=== PATIENT | female | born 1995 | race Caucasian/White ===

== ENCOUNTER 2017-12-19 05:30 | Inpatient (IN) | payer OTHER ==
[2017-12-19] MEDS ORDERED: Docusate 100 MG CAP PO PRN (07:28)
[2017-12-19] MEDS ORDERED: Acetaminophen 500 MG TAB PO PRN (07:28)
[2017-12-19] MEDS ORDERED: Promethazine HCl 25 MG/ML VIAL IM PRN ×2 (07:28→15:37)
[2017-12-19] MEDS ORDERED: Lidocaine 1% (PF) 30 ML VIAL SC PRN (07:28)
[2017-12-19] MEDS ORDERED: Ondansetron HCl/PF 4 MG/2 ML Vial IVP PRN ×2 (07:28→15:37)
[2017-12-19] MEDS ORDERED: Ibuprofen 800 MG TAB PO PRN (07:28)
[2017-12-19 07:55] VITALS: BMI 44.6
--- NOTE | 2017-12-19 07:58 | PDOC.LDHP ---
Labor and Delivery H&P Chief complaint: other (TOLAC induction of labor for IUGR with AROM) HPI: Ginger Castorena is a 21 year old @ 39.0 weeks based on LMP c/w 13.0 wk US. She present for TOLAC induction of labor for IUGR with AROM. She is doing well, inconsistently feeling contractions, denies LOF, vaginal bleeding, vaginal discharge. +FM. This has been complicated by IUGR nAC<10% down from 72% at 31.6 weeks. She also had elevated temperatures 2/2 white coat syndrome. She has a history of gestation HTN in previous which resulted in a LTCS for nonreassuring heart tones. Current gestational age (weeks): 39 (39.0) Due date: 12/26/17 Dating criteria: last menstrual period, first trimester ultrasound Grav: 2 Para: 1 (1001) OB History Details: Had gestation HTN in previous , which resulted in LTCS for non reassuring heart tones Current complications: IUGR Abnormal US findings: Yes (IUGR, pyelectasis, hydronephrosis of L kidney) Past Medical History: Asthma-controlled on no medication Current medications: none Previous surgical history: low tranverse CS Social history: none - Physical Exam Vital signs reviewed and normal: yes General: NAD, resting Heart: RRR Lungs: CTAB Abdomen: NTTP Extremeties: no edema FHT: category 1 [place] contractions every: 10 min - Vaginal Exam cm dilated: 4 Effacement: 75% Station: -2 - OB Labs Blood type: O RH: positive Antibody Screen: negative HIV: negative RPR: negative HEPSAg: negative 1 hour GCT: negative GBS: negative Rubella: immune - Assessment L&D Assessment: medically indicated induction (for IUGR) - Plan Plan: admit to L&D (Bedside US performed. Patient is vertex, placenta anterior. Note: Patient does have history of asthma. Avoid hemabate if possible.), informed consent obtained, anesthesia consult for pain management <Javy Scott - Last Filed: 12/19/17 07:53> <Irais Chowdary - Last Filed: 12/19/17 09:18> Allergies/Adverse Reactions: Allergies Allergy/AdvReac Type Severity Reaction Status Date / Time No Known Allergies Allergy Verified 12/19/17 07:47 Attending Addendum - Attending Addendum Date/Time: 12/19/17 0904 I personally evaluated the patient and discussed the management with Dr. Scott and Jarrod I agree with the History, Examination, Assessment and Plan documented above with any addition or exceptions noted below. 21 yo female at 39.0 wks by LMP/13.0 wk sono here for IOL 2/2 Asymmetric growth restriction HD#1 1. sIUP: IOB labs reviewed. Anatomy reviewed. Flu and Tdap given during . 1 hour gtt = 86. 3T negative. GBS negative. 2. Asymmetric growth restriction: AC <1%tile per [place] at 37.1 wks. Has been following with MFM. UA dopplers = 2.60 (66%). Overall EFW = 2707g (21%) at 37.1 wks. Recommend delivery at 39 wks. 3. left pyelectasis: Will need follow up after . 4. hx of LTCS 2/2 NRFHT: Would like TOLAC but understands risk and possible limitations related to fetus. Adequate maternal pelvis on exam. Favorable cerix at 4/50/-2 and bulging bag. Will induce with AROM. Cat 1 tracing with occasional contractions. Patient would like epidural for pain control. 5. BMI 45: wt gain this 7 lbs. A1c and TSH WNL. 6. White coat HTN: BP stable with home monitoring. BP WNL today. Does have hx of gHTN but not complications this . Susan <Irais Chowdary - Last Filed: 12/19/17 09:18>
[2017-12-19] MEDS: Lactated Ringer's 1,000 ML IV SCH ×3 (08:18→17:46)
[2017-12-19 08:47] LABS: Hemoglobin 11.4 g/dL (12.0-16.0); Mean Corpuscular Hemoglobin 26.2 pg (25.0-35.0); Mean Platelet Volume 8.9 fL (7.4-10.4); Platelet Count 233 thou/uL (130-400); RBC Distribution Width 14.6 % (11.5-14.5); Red Blood Cell (RBC) Count 4.34 mill/uL (4.00-5.20); White Blood Cell (WBC) Count 10.7 thou/uL (4.8-10.8)
[2017-12-19 09:11] LABS: HBSAg Index 0.18 S/CO (0-0.99); Hep B Surf Ag Non-Reactive S/CO (NonReactive); Syphilis Antibody Nonreactive (Nonreactive); Syphilis Antibody Index 0.02 S/CO (<1.00 Non-Reactive)
--- NOTE | 2017-12-19 09:21 | PDOC.LDPN ---
Labor & Delivery Progress Note - Subjective Subjective: comfortable - Objective Vital signs reviewed and normal: yes General: NAD, resting Uterine fundus: palpable contractions Dilation: 4 Effacement: 50% Station: -2 FHT: category 1 [place] contractions every: occasional AROM: clear fluid - Assessment (1) History of delivery Code(s): Z98.891 - HISTORY OF UTERINE SCAR FROM PREVIOUS SURGERY Current Visit : Yes Status: Acute Comment: Would like TOLAC. R/B/A discussed. Questions answered. Consent signed. Favorable cervix. Linares score of 8. Occasional contractions. FHT cat 1. Will AROM for IOL. (2) Encounter for induction of labor Code(s): Z34.90 - ENCNTR FOR SUPRVSN OF NORMAL , UNSP, UNSP TRIMESTER Current Visit: Yes Status: Acute Comment: 21 yo female at 39.0 wks by LMP/13.0 wk sono here for IOL 2/2 asymmetric growth restriction. Fetus continues to have progressive AC growth restriction. Last Ac <1%tile per [place] at 37.1 wks. Per MFM recommend delivery at 39 wks. Has history of LTCS will induce with AROM. [employer] reviewed plan and agrees. Cephalic by sono. Cat 1 tracing. (3) growth restriction Current Visit: Yes Status: Acute Comment: Asymmetric. AC <1%tile per [place] at 37.1 wks. MFM following. Umbilical artery dopplers WNL. Recommend delivery at 39 wks. (4) Pyelectasis of fetus on ultrasound Code(s): O35.8XX0 - MATERNAL CARE FOR OTH ABNORMALITY AND DAMAGE, UNSP Current Visit: Yes Status: Acute Comment: Will need renal sono after delivery. CHELI WNL. (5) BMI 40.0-44.9, adult Code(s): Z68.41 - BODY MASS INDEX (BMI) 40.0-44.9, ADULT Current Visit: Yes Status: Acute Comment: TSH = 1.82. A1c = 5.1%. 1 hour gtt = 86. 7lb wt gain this . Plan: continue plan of care -: Continuous monitoring. May have clears. Admission labs reviewed. AROM'ed with clear fluid. Will repeat exam prn vs 3 to 4 hours to consider IUPC and pitocin. Susan
[2017-12-19 11:39] LABS: Albumin 3.8 g/dL (3.5-5.0); Calcium 9.4 mg/dL (7.8-10.44); Chloride 107 mmol/L (98-107); Glucose 84 mg/dL (70-105); Potassium 4.2 mmol/L (3.5-5.1); Sodium 136 mmol/L (136-145)
--- NOTE | 2017-12-19 11:47 | PDOC.LDPN ---
Labor & Delivery Progress Note - Subjective Subjective: comfortable, painful contractions - Objective Vital signs reviewed and normal: yes Abnormal vital signs: BP was 140/80 about 45 min ago General: NAD, resting, breathing through contractions Uterine fundus: non tender SVE: Tyler Dilation: 5 Effacement: 75% Station: -2 FHT: category 1 [place] contractions every: 6-7 min Procedures: IUPC placed IUPC placed: yes - Assessment (1) Encounter for induction of labor Code(s): Z34.90 - ENCNTR FOR SUPRVSN OF NORMAL , UNSP, UNSP TRIMESTER Current Visit: Yes Status: Acute Comment: 21 yo female at 39.0 wks by LMP/13.0 wk sono here for IOL 2/2 asymmetric growth restriction. Fetus continues to have progressive AC growth restriction. Last Ac <1%tile per [place] at 37.1 wks. Per MFM recommend delivery at 39 wks. Has history of LTCS will induce with AROM. TOP STOP ATTACHER reviewed plan and agrees. Cephalic by sono. Cat 1 tracing. IUPC placed, will reevaluate in 2 hours and determine whether or not to start pitocin. (2) growth restriction Current Visit: Yes Status: Acute Comment: Asymmetric. AC <1%tile per [place] at 37.1 wks. MFM following. Umbilical artery dopplers WNL. Recommend delivery at 39 wks. (3) BMI 40.0-44.9, adult Code(s): Z68.41 - BODY MASS INDEX (BMI) 40.0-44.9, ADULT Current Visit: Yes Status: Acute Comment: TSH = 1.82. A1c = 5.1%. 1 hour gtt = 86. 7lb wt gain this . (4) History of delivery Code(s): Z98.891 - HISTORY OF UTERINE SCAR FROM PREVIOUS SURGERY Current Visit : Yes Status: Acute Comment: Would like TOLAC. R/B/A discussed. Questions answered. Consent signed. Favorable cervix. Linares score of 8. Occasional contractions. FHT cat 1. AROM at 0900. IUPC placed at 1140. Ctx every 6-7 min. (5) Pyelectasis of fetus on ultrasound Code(s): O35.8XX0 - MATERNAL CARE FOR OTH ABNORMALITY AND DAMAGE, UNSP Current Visit: Yes Status: Acute Comment: Will need renal sono after delivery. CHELI WNL. Plan: continue plan of care -: AROM-clear fluid at 0900, IUPC placed at 1140, SVE: /-2 at 1140 <Javy Scott - Last Filed: 12/19/17 11:45> - Assessment (1) History of delivery Code(s): Z98.891 - HISTORY OF UTERINE SCAR FROM PREVIOUS SURGERY Current Visit : Yes Status: Acute Comment: Would like TOLAC. R/B/A discussed. Questions answered. Consent signed. Favorable cervix. Linares score of 8. Occasional contractions. FHT cat 1. AROM at 0900. IUPC placed at 1140. FSE placed at 1345. (2) Encounter for induction of labor Code(s): Z34.90 - ENCNTR FOR SUPRVSN OF NORMAL , UNSP, UNSP TRIMESTER Current Visit: Yes Status: Acute Comment: 21 yo female at 39.0 wks by LMP/13.0 wk sono here for IOL 2/2 asymmetric growth restriction. Fetus continues to have progressive AC growth restriction. Last Ac <1%tile per [place] at 37.1 wks. Per MFM recommend delivery at 39 wks. Has history of LTCS will induce with AROM. TOP STOP ATTACHER reviewed plan and agrees. Cephalic by sono. Post Day 1: Continue routine post- care. Pain management. Monitoring for bleeding, fever, pain. Mom is . (3) growth restriction Current Visit: Yes Status: Acute Comment: Asymmetric. AC <1%tile per [place] at 37.1 wks. MFM following. Umbilical artery dopplers WNL. (4) Pyelectasis of fetus on ultrasound Code(s): O35.8XX0 - MATERNAL CARE FOR OTH ABNORMALITY AND DAMAGE, UNSP Current Visit: Yes Status: Acute Comment: Will need renal sono after delivery. CHELI WNL. (5) BMI 40.0-44.9, adult Code(s): Z68.41 - BODY MASS INDEX (BMI) 40.0-44.9, ADULT Current Visit: Yes Status: Acute Comment: TSH = 1.82. A1c = 5.1%. 1 hour gtt = 86. 7lb wt gain this . <Irais Chowdary - Last Filed: 12/20/17 11:44> Attending Addendum - Attending Addendum Date/Time: 12/20/17 6053 I personally evaluated the patient and discussed the management with Dr. Scott I agree with the History, Examination, Assessment and Plan documented above with any addition or exceptions noted below. Continue current care. Changing spontaneously. IUPC in place due to poor external monitoring. Repeat exam in 2 hours. BP stable. Labs WNL. ABrayMD <Irais Chowdary - Last Filed: 12/20/17 11:44>
[2017-12-19 11:58] LABS: Alkaline Phosphatase 175 U/L (40-150); Anion Gap 16 mmol/L (10-20); BUN (Urea Nitrogen) 7 mg/dL (8.4-21.0); Bilirubin, Total 0.3 mg/dL (0.2-1.2); Calc. Creatinine Clearance 286 mL/min (70-130); Carbon Dioxide 17 mmol/L (22-29); Estimated GFR-MDRD Greater than 90; Globulin 2.9 g/dL (2.4-3.5); Protein, Total 6.7 g/dL (6.0-8.3)
[2017-12-19 11:59] LABS: AST (SGOT) 19 U/L (5-30)
[2017-12-19 12:51] LABS: ALT (SGPT) 10 U/L (8-55)
[2017-12-19 13:52] LABS: Creatinine, Urine 31.77 mg/dL (47-110)
--- NOTE | 2017-12-19 13:59 | PDOC.LDPN ---
Labor & Delivery Progress Note - Objective SVE: ALEKSANDR Simons Dilation: 6 Effacement: 100% Station: -1 FHT: category 1 [place] contractions every: 6-7 Procedures: scalp electrode placed FSE placed: yes - Assessment (1) Encounter for induction of labor Code(s): Z34.90 - ENCNTR FOR SUPRVSN OF NORMAL , UNSP, UNSP TRIMESTER Current Visit: Yes Status: Acute Comment: 21 yo female at 39.0 wks by LMP/13.0 wk sono here for IOL 2/2 asymmetric growth restriction. Fetus continues to have progressive AC growth restriction. Last Ac <1%tile per [place] at 37.1 wks. Per MFM recommend delivery at 39 wks. Has history of LTCS will induce with AROM. REVERSER reviewed plan and agrees. Cephalic by sono. Cat 1 tracing. AROM at 0900 and IUPC placed at 1130 and FSE placed at 1345. Check at 1345 was 6/100/-1. (2) growth restriction Current Visit: Yes Status: Acute Comment: Asymmetric. AC <1%tile per [place] at 37.1 wks. MFM following. Umbilical artery dopplers WNL. Recommend delivery at 39 wks. (3) BMI 40.0-44.9, adult Code(s): Z68.41 - BODY MASS INDEX (BMI) 40.0-44.9, ADULT Current Visit: Yes Status: Acute Comment: TSH = 1.82. A1c = 5.1%. 1 hour gtt = 86. 7lb wt gain this . (4) History of delivery Code(s): Z98.891 - HISTORY OF UTERINE SCAR FROM PREVIOUS SURGERY Current Visit : Yes Status: Acute Comment: Would like TOLAC. R/B/A discussed. Questions answered. Consent signed. Favorable cervix. Linares score of 8. Occasional contractions. FHT cat 1. AROM at 0900. IUPC placed at 1140. FSE placed at 1345. (5) Pyelectasis of fetus on ultrasound Code(s): O35.8XX0 - MATERNAL CARE FOR OTH ABNORMALITY AND DAMAGE, UNSP Current Visit: Yes Status: Acute Comment: Will need renal sono after delivery. CHELI WNL. Plan: continue plan of care <Javy Scott - Last Filed: 12/19/17 13:57> - Assessment (1) History of delivery Code(s): Z98.891 - HISTORY OF UTERINE SCAR FROM PREVIOUS SURGERY Current Visit : Yes Status: Acute Comment: Would like TOLAC. R/B/A discussed. Questions answered. Consent signed. Favorable cervix. Linares score of 8. Occasional contractions. FHT cat 1. AROM at 0900. IUPC placed at 1140. FSE placed at 1345. (2) Encounter for induction of labor Code(s): Z34.90 - ENCNTR FOR SUPRVSN OF NORMAL , UNSP, UNSP TRIMESTER Current Visit: Yes Status: Acute Comment: 21 yo female at 39.0 wks by LMP/13.0 wk sono here for IOL 2/2 asymmetric growth restriction. Fetus continues to have progressive AC growth restriction. Last Ac <1%tile per [place] at 37.1 wks. Per MFM recommend delivery at 39 wks. Has history of LTCS will induce with AROM. REVERSER reviewed plan and agrees. Cephalic by sono. Post Day 1: Continue routine post- care. Pain management. Monitoring for bleeding, fever, pain. Mom is . (3) growth restriction Current Visit: Yes Status: Acute Comment: Asymmetric. AC <1%tile per [place] at 37.1 wks. MFM following. Umbilical artery dopplers WNL. (4) Pyelectasis of fetus on ultrasound Code(s): O35.8XX0 - MATERNAL CARE FOR OTH ABNORMALITY AND DAMAGE, UNSP Current Visit: Yes Status: Acute Comment: Will need renal sono after delivery. CHELI WNL. (5) BMI 40.0-44.9, adult Code(s): Z68.41 - BODY MASS INDEX (BMI) 40.0-44.9, ADULT Current Visit: Yes Status: Acute Comment: TSH = 1.82. A1c = 5.1%. 1 hour gtt = 86. 7lb wt gain this . <Irais Chowdary - Last Filed: 12/20/17 11:47> Attending Addendum - Attending Addendum Date/Time: 12/19/17 5095 I personally evaluated the patient and discussed the management with Dr. Scott I agree with the History, Examination, Assessment and Plan documented above with any addition or exceptions noted below. 21 yo undergoing trial of labor after . Labor induced with AROM for assymetric IUGR She denies [place], vision changes or RUQ pain Cervix now 6/100/-1 FHT: 135/moderate variability/accels present/variable decels present. Cat II FHT , overall reassuring 1. Pt making spontaneous cervical change without pitocin augmentation. Continue current expectant management. 2. BP has been intermittently elevated in mild range. Urine P:C ration is elevated at 0.378 however this specimen was a clean catch after AROM so not be completely accurate. Will continue to monitor BP and symptoms closely for signs of evolving pre-eclampsia. <Filomena Del Cid - Last Filed: 12/19/17 15:07> - Attending Addendum Date/Time: 12/19/17 15:30 Reviewed. Agree with current management. Susan <Irais Chowdary - Last Filed: 12/20/17 11:47>
[2017-12-19] MEDS ORDERED: DISCONTINUE ALL PREVIOUS NARCOTICS FS SCH (15:15)
[2017-12-19] MEDS ORDERED: Bupivacaine 0.5% 20 ML, fentaNYL Citrate/PF 400 MCG in Sodium Chloride 0.9% 72 ML EPIDURAL SCH ×2 (15:15→16:00)
[2017-12-19] MEDS ORDERED: diphenhydrAMINE 50 MG/ML VIAL IVP PRN (15:37)
[2017-12-19] MEDS ORDERED: Lactated Ringer's 500 ML IV PRN (15:37)
[2017-12-19] MEDS ORDERED: ePHEDrine/0.9% NaCl/PF SYRINGE 50 mg/10 ml SLOW IVP PRN (15:37)
[2017-12-19] MEDS ORDERED: Eucerin (Mineral Oil/Petrolatum,White) 30 gm Jar TOP PRN (15:37)
[2017-12-19] MEDS ORDERED: Acetaminophen 325 MG TAB PO PRN (15:37)
[2017-12-19] MEDS ORDERED: Naloxone HCl 0.4 mg/ml Vial IVP PRN ×2 (15:37)
[2017-12-19] MEDS ORDERED: Communication Order-Pharmacy FS SCH (15:45)
[2017-12-19] MEDS ORDERED: Fentanyl 4mcg/Marcaine 0.1% Cassette 100 ML EPIDURAL SCH (15:45)
--- NOTE | 2017-12-19 16:30 | PDOC.LDPN ---
Labor & Delivery Progress Note - Subjective Subjective: comfortable (tolerating contractions much more since getting epidural) - Objective Vital signs reviewed and normal: yes General: NAD, resting, breathing through contractions Uterine fundus: non tender SVE: [place] Dilation: 9.5-anterior lip Effacement: 100% Station: 0 FHT: category 1 (baseline 135, moderate variability, no decels, accels present) [place] contractions every: 2-3 min - Assessment (1) Encounter for induction of labor Code(s): Z34.90 - ENCNTR FOR SUPRVSN OF NORMAL , UNSP, UNSP TRIMESTER Current Visit: Yes Status: Acute Comment: 21 yo female at 39.0 wks by LMP/13.0 wk sono here for IOL 2/2 asymmetric growth restriction. Fetus continues to have progressive AC growth restriction. Last Ac <1%tile per [place] at 37.1 wks. Per MFM recommend delivery at 39 wks. Has history of LTCS will induce with AROM. SLAB POLISHER reviewed plan and agrees. Cephalic by sono. Cat 1 tracing. AROM at 0900 and IUPC placed at 1130 and FSE placed at 1345. Check at 1345 was 6/100/-1. Check at 1615 was 9.5/100/0, anterior lip. (2) growth restriction Current Visit: Yes Status: Acute Comment: Asymmetric. AC <1%tile per [place] at 37.1 wks. MFM following. Umbilical artery dopplers WNL. Recommend delivery at 39 wks. (3) BMI 40.0-44.9, adult Code(s): Z68.41 - BODY MASS INDEX (BMI) 40.0-44.9, ADULT Current Visit: Yes Status: Acute Comment: TSH = 1.82. A1c = 5.1%. 1 hour gtt = 86. 7lb wt gain this . (4) History of delivery Code(s): Z98.891 - HISTORY OF UTERINE SCAR FROM PREVIOUS SURGERY Current Visit : Yes Status: Acute Comment: Would like TOLAC. R/B/A discussed. Questions answered. Consent signed. Favorable cervix. Linares score of 8. Occasional contractions. FHT cat 1. AROM at 0900. IUPC placed at 1140. FSE placed at 1345. (5) Pyelectasis of fetus on ultrasound Code(s): O35.8XX0 - MATERNAL CARE FOR OTH ABNORMALITY AND DAMAGE, UNSP Current Visit: Yes Status: Acute Comment: Will need renal sono after delivery. CHELI WNL. Plan: continue plan of care <Javy Scott - Last Filed: 12/19/17 16:28> - Assessment (1) History of delivery Code(s): Z98.891 - HISTORY OF UTERINE SCAR FROM PREVIOUS SURGERY Current Visit : Yes Status: Acute Comment: Would like TOLAC. R/B/A discussed. Questions answered. Consent signed. Favorable cervix. Linares score of 8. Occasional contractions. FHT cat 1. AROM at 0900. IUPC placed at 1140. FSE placed at 1345. (2) Encounter for induction of labor Code(s): Z34.90 - ENCNTR FOR SUPRVSN OF NORMAL , UNSP, UNSP TRIMESTER Current Visit: Yes Status: Acute Comment: 21 yo female at 39.0 wks by LMP/13.0 wk sono here for IOL 2/2 asymmetric growth restriction. Fetus continues to have progressive AC growth restriction. Last Ac <1%tile per [place] at 37.1 wks. Per MFM recommend delivery at 39 wks. Has history of LTCS will induce with AROM. SLAB POLISHER reviewed plan and agrees. Cephalic by sono. Post Day 1: Continue routine post- care. Pain management. Monitoring for bleeding, fever, pain. Mom is . (3) growth restriction Current Visit: Yes Status: Acute Comment: Asymmetric. AC <1%tile per [place] at 37.1 wks. MFM following. Umbilical artery dopplers WNL. (4) Pyelectasis of fetus on ultrasound Code(s): O35.8XX0 - MATERNAL CARE FOR OTH ABNORMALITY AND DAMAGE, UNSP Current Visit: Yes Status: Acute Comment: Will need renal sono after delivery. CHELI WNL. (5) BMI 40.0-44.9, adult Code(s): Z68.41 - BODY MASS INDEX (BMI) 40.0-44.9, ADULT Current Visit: Yes Status: Acute Comment: TSH = 1.82. A1c = 5.1%. 1 hour gtt = 86. 7lb wt gain this . <Irais Chowdary - Last Filed: 12/20/17 11:49> Attending Addendum - Attending Addendum Date/Time: 12/20/17 1100 I personally evaluated the patient and discussed the management with Dr. Scott I agree with the History, Examination, Assessment and Plan documented above with any addition or exceptions noted below. Pt now fully dilated but at 0 station. Will allow her to labor down. Cat I FHT Anticipate vaginal delivery <Filomena Del Cid - Last Filed: 12/20/17 10:59> - Attending Addendum Date/Time: 12/19/17 1148 Repeat exam in 1 to 2 hours. Consider laboring down for 1 hour. ABrayMD <Irais Chowdary - Last Filed: 12/20/17 11:49>
[2017-12-19] MEDS: LR / Pitocin 40 units/1000 ml 1,000 ML IV PRN ×2 (19:30→21:20)
--- NOTE | 2017-12-19 21:07 | PDOC.OPDEL ---
OB Operative/Delivery Note Delivery Dr/Surgeon: Carol/Epi Assist: Jacoby Pre-Delivery Diagnosis: medically indicated induction Procedure/Post Delivery Dx: vaginal delivery after CS Weeks gestation: 39 (0 days) Anesthesia: epidural - Additional Findings/Plan Placenta delivered: spontaneous Repaired Obstetrical Laceration: other (2nd degree perineal, repaired 2 periurethral, hemostatic anterior sulcus tear, repaired) Estimated blood loss: 800ml Compilations/Other Findings: Delivery Note: This is 21yo F @ 39wks who delivered a viable F infant at 1923 via . Patient with IOL for asymmetric IUGR with AROM. During antepartum, a perineal laceration did ensue while pushing. A vigorous female was delivered over an intact perineum in the occipitoanterior position. Anterior Shoulder and then remainder of the body delivered. No nuchal cord. The head was held down and mouth was bulb suctioned. Baby cried immediately. Delayed cord clamping was performed. Cord was clamped and cut and cord blood collected. Placenta delivered intact with a 3 vessel cord noted. Fundal massage was performed and the fundus was firm. The cervix and vagina were inspected and found to have 2 small periurethral lacerations that were hemostatic, a 2nd degree perineal laceration and a right anterior sulcus laceration. Lacerations were repaired with 3.0 chromic in the usual fashion with good approximation and hemostasis. Patient did have some oozing at suture sites at the end of repair and a vaginal pack was placed to achieve a tamponade effect. Significant oozing due to increased swelling of the tissue. Infant remained skin to skin with Apgars of 8 /9 at 1 & 5 minutes, respectively. Patient tolerated delivery well and went to after routine recovery/care. Post delivery plan: routine recovery <Winter Medina - Last Filed: 12/19/17 21:06> - Findings A Sex: female - 1 min: 8 - 5 min: 9 - Additional Findings/Plan Repaired Obstetrical Laceration: other (2nd degree perineal, 2 periurethral hemostatic lacerations, 1 right anterior sulcus tear, repaired) Compilations/Other Findings: I was present and preformed the procedure with Dr. Medina and Dr. Dozier. Successful . Complex vaginal lacerations due to bleeding but otherwise easily repaired. Vaginal packing placed due to vascular congestion and bleeding. Routine pp care. Susan <Irais Chowdary - Last Filed: 12/20/17 12:08>
[2017-12-19] MEDS ORDERED: HYDROcodone/Acetaminophen 5/325 mg Tablet PO PRN (23:08)
[2017-12-19] MEDS ORDERED: Preparation H Ointment 28 GM TUBE PR PRN (23:08)
[2017-12-19] MEDS ORDERED: LR / Pitocin 40 units/1000 ml 1,000 ML IV SCH (23:08)
[2017-12-19] MEDS ORDERED: Bisacodyl 10 MG SUPP PR PRN (23:08)
[2017-12-19] MEDS ORDERED: Lanolin Ointment 7 GM TUBE TOP PRN (23:08)
[2017-12-19] MEDS ORDERED: Milk Of Magnesia 30 ML UDCUP PO PRN (23:08)
[2017-12-19] MEDS ORDERED: Benzocaine/Menthol 20-0.5% 60 ML CAN TOP PRN (23:08)
[2017-12-19] MEDS: Docusate Calcium (SURFAK) 240 MG CAP PO SCH (23:45)
[2017-12-20] MEDS: Lactated Ringer's 1,000 ML IV SCH (00:29)
[2017-12-20 05:31] LABS: Hemoglobin 7.9 g/dL (12.0-16.0); Mean Corpuscular HGB CONC 33.8 g/dL (32.0-36.0); Mean Corpuscular Hemoglobin 25.9 pg (25.0-35.0); Mean Corpuscular Volume 76.8 fl (77.0-87.0); Mean Platelet Volume 8.4 fL (7.4-10.4); Platelet Count 222 thou/uL (130-400); RBC Distribution Width 14.7 % (11.5-14.5); Red Blood Cell (RBC) Count 3.04 mill/uL (4.00-5.20)
--- NOTE | 2017-12-20 06:58 | PDOC.PP ---
Post Progress Note Post Day #: 1 Subjective: Ginger seen at bedside. Doing well this morning. Denies fever, chills, chest pain, dyspnea, n/v. States that she has minimal bleeding, no abdominal pain. PO intake tolerated: yes Flatus: yes Ambulation: yes Vital Signs (12 hours) Temp Pulse Resp BP BP 12/20/17 04:00 98.1 F 95 20 104/50 L 12/20/17 00:25 98.4 F 114 H 18 108/60 108/60 12/19/17 23:25 98.1 F 117 H 20 116/56 L 12/19/17 22:35 99.4 F 99 20 118/56 L Weight Weight 117.934 kg - Physical Examination General: NAD Cardiovascular: no m/r/g, RRR Respiratory: clear to auscultation bilaterally, non-labored breathing Abdominal: + bowel sounds, lochia, no distention, appropriately TTP Extremities: negative homans (B) Skin: no rash Neurological: no gross focal deficits Psychiatric: A&Ox3, normal affect Result Diagrams: 12/20/17 04:41 12/19/17 08:32 Additional Labs: Post Labs Blood Type O POSITIVE 12/19/17 08:32 Hep Bs Antigen Non-Reactive S/CO (NonReactive) 12/19/17 08:32 (1) Encounter for induction of labor Code(s): Z34.90 - ENCNTR FOR SUPRVSN OF NORMAL , UNSP, UNSP TRIMESTER Status: Acute Comment: 21 yo female at 39.0 wks by LMP/13.0 wk sono here for IOL 2/2 asymmetric growth restriction. Fetus continues to have progressive AC growth restriction. Last Ac <1%tile per Hadlock at 37.1 wks. Per MFM recommend delivery at 39 wks. Has history of LTCS will induce with AROM. DEAN OF GRADUATE STUDIES reviewed plan and agrees. Cephalic by sono. Post Day 1: Continue routine post- care. Pain management. Monitoring for bleeding, fever, pain. Mom is . (2) growth restriction Status: Acute Comment: Asymmetric. AC <1%tile per [place]lock at 37.1 wks. MFM following. Umbilical artery dopplers WNL. (3) BMI 40.0-44.9, adult Code(s): Z68.41 - BODY MASS INDEX (BMI) 40.0-44.9, ADULT Status: Acute Comment: TSH = 1.82. A1c = 5.1%. 1 hour gtt = 86. 7lb wt gain this . (4) History of delivery Code(s): Z98.891 - HISTORY OF UTERINE SCAR FROM PREVIOUS SURGERY Status: Acute Comment: Would like TOLAC. R/B/A discussed. Questions answered. Consent signed. Favorable cervix. Linares score of 8. Occasional contractions. FHT cat 1. AROM at 0900. IUPC placed at 1140. FSE placed at 1345. (5) Pyelectasis of fetus on ultrasound Code(s): O35.8XX0 - MATERNAL CARE FOR OTH ABNORMALITY AND DAMAGE, UNSP Status: Acute Comment: Will need renal sono after delivery. CHELI WNL. - Assessment/Plan (1) , delivered: 39.0 wks delivered viable F at 1923 on 12/19/17. EBL approximately 800 cc. - Routine post care - Offer patient financial services consultant referral - pain management - monitor vitals, pt was GBS neg, no intrapartum fevers - will remove vaginal pack this morning, monitor for bleeding (2) Post- hemorrhage, Stage 1: - EBL 800 mL - patient's initial vitals within 12 hours since delivery show slight decrease in baseline BP and tachycardia between 100s-120. - Vaginal pack placed post delivery, will remove this morning and continue to monitor for bleeding - No intervention indicated at this time (3) - Did not have success with first baby - will consult health analytics consultant <Javy Scott - Last Filed: 12/20/17 08:22> Vital Signs (12 hours) Temp Pulse Resp BP BP 12/20/17 11:05 98.1 F 104 H 18 121/58 L 12/20/17 08:00 98.1 F 87 18 106/58 L 12/20/17 04:00 98.1 F 95 20 104/50 L Weight Weight 117.934 kg Result Diagrams: 12/20/17 04:41 12/19/17 08:32 Additional Labs: Post Labs Blood Type O POSITIVE 12/19/17 08:32 Hep Bs Antigen Non-Reactive S/CO (NonReactive) 12/19/17 08:32 (1) History of delivery Code(s): Z98.891 - HISTORY OF UTERINE SCAR FROM PREVIOUS SURGERY Status: Acute Comment: Would like TOLAC. R/B/A discussed. Questions answered. Consent signed. Favorable cervix. Linares score of 8. Occasional contractions. FHT cat 1. AROM at 0900. IUPC placed at 1140. FSE placed at 1345. (2) Encounter for induction of labor Code(s): Z34.90 - ENCNTR FOR SUPRVSN OF NORMAL , UNSP, UNSP TRIMESTER Status: Acute Comment: 21 yo female at 39.0 wks by LMP/13.0 wk sono here for IOL 2/2 asymmetric growth restriction. Fetus continues to have progressive AC growth restriction. Last Ac <1%tile per [place] at 37.1 wks. Per MFM recommend delivery at 39 wks. Has history of LTCS will induce with AROM. DEAN OF GRADUATE STUDIES reviewed plan and agrees. Cephalic by sono. Post Day 1: Continue routine post- care. Pain management. Monitoring for bleeding, fever, pain. Mom is . (3) growth restriction Status: Acute Comment: Asymmetric. AC <1%tile per [place]lock at 37.1 wks. MFM following. Umbilical artery dopplers WNL. (4) Pyelectasis of fetus on ultrasound Code(s): O35.8XX0 - MATERNAL CARE FOR OTH ABNORMALITY AND DAMAGE, UNSP Status: Acute Comment: Will need renal sono after delivery. CHELI WNL. (5) BMI 40.0-44.9, adult Code(s): Z68.41 - BODY MASS INDEX (BMI) 40.0-44.9, ADULT Status: Acute Comment: TSH = 1.82. A1c = 5.1%. 1 hour gtt = 86. 7lb wt gain this . <Irais Chowdary - Last Filed: 12/20/17 13:41> Attending Addendum - Attending Addendum Date/Time: 12/20/17 [id number] I personally evaluated the patient and discussed the management with Dr. Scott I agree with the History, Examination, Assessment and Plan documented above with any addition or exceptions noted below. 21 yo now female s/p on 12/19/17 PPD #1 Doing well. No complaints. Pain controlled. Vagpack removed this AM. No clots. Vaginal lacerations hemostatic. Bonner to be d/nikhil by nurse. Encourage ambulation. regulatory services consultant to come by later today. Initially concerned for gHTN vs preeclampsia without severe. Workup negative. VS reviewed. BP stable. No elevated. HR recently increased. Patient denies symptoms of anemia. Labs reviewed. Exam consistent with above. 1. s/p : continue routine care 2. Breast feeding. regulatory services consultant today. 3. Contraception: LRAC ABray <Irais Chowdary - Last Filed: 12/20/17 13:41>
[2017-12-20] MEDS ORDERED: HYDROcodone/Acetaminophen 5/325 mg Tablet PO PRN ×2 (07:24)
[2017-12-20] MEDS: Ferrous Sulfate 325 MG TAB PO SCH ×2 (08:32→17:09)
[2017-12-20] MEDS: Ibuprofen 800 MG TAB PO SCH ×3 (08:32→21:48)
[2017-12-20] MEDS: Docusate Calcium (SURFAK) 240 MG CAP PO SCH ×2 (08:32→21:48)
[2017-12-20] MEDS: Prenatal Vitamin 1 TAB PO SCH (08:32)
[2017-12-20] MEDS ORDERED: Adacel (T-DAP) 0.5 ML VIAL IM ONE (09:00)
[2017-12-21] MEDS: Ibuprofen 800 MG TAB PO SCH (05:39)
[2017-12-21 08:21] VITALS: BP 123/66; TEMP 97.9
--- NOTE | 2017-12-21 09:04 | PDOC.PP ---
Post Progress Note Post Day #: 2 Subjective: Patient doing well. No complaints today. Ready to go home. Reports lochia continues to decrease. No passage of clots. Ambulating well. Voiding well. Has only required 1 dose of pain medication. Breast feeding. PO intake tolerated: yes Ambulation: yes Vital Signs (12 hours) Temp Pulse Resp BP Pulse Ox 12/21/17 08:00 97.9 F 89 16 123/66 12/21/17 05:41 97.7 F 83 18 104/61 98 12/21/17 01:38 97.7 F 91 18 116/54 L 99 Weight Weight 117.934 kg - Physical Examination General: NAD Cardiovascular: no m/r/g, RRR Respiratory: clear to auscultation bilaterally, non-labored breathing Abdominal: + bowel sounds, lochia (mild), no distention Fundus firm & at: -3 below the umbilicus Extremities: negative homans (B) Perineum: mild edema, lacerations healing well, no drainage Neurological: no gross focal deficits Psychiatric: A&Ox3, normal affect Result Diagrams: 12/20/17 04:41 12/19/17 08:32 Additional Labs: Post Labs Blood Type O POSITIVE 12/19/17 08:32 Hep Bs Antigen Non-Reactive S/CO (NonReactive) 12/19/17 08:32 (1) History of delivery Code(s): Z98.891 - HISTORY OF UTERINE SCAR FROM PREVIOUS SURGERY Status: Acute Comment: s/p . Doing well. Will d/c to home. Follow up with [facility] in 2 wks with myself. (2) BMI 40.0-44.9, adult Code(s): Z68.41 - BODY MASS INDEX (BMI) 40.0-44.9, ADULT Status: Acute Comment: TSH = 1.82. A1c = 5.1%. 1 hour gtt = 86. 7lb wt gain this . Continue lifesyle modifications. (3) Blood loss anemia Code(s): D50.0 - IRON DEFICIENCY ANEMIA SECONDARY TO BLOOD LOSS (CHRONIC) Status: Acute Comment: Contine oral iron. Consider repeat H&H in 1 month. Mild PPH related to vaginal lacerations. Patient asymptomatic. (4) Vaginal after () Code(s): O34.219 - MATERNAL CARE FOR UNSP TYPE SCAR FROM PREVIOUS DEL Status: Acute Comment: PPD#2. Ok to d/c home. Pelvic rest x 6 wks. Would like LRAC for contraception. (5) Perineal laceration complicating delivery Code(s): O70.9 - PERINEAL LACERATION DURING DELIVERY, UNSPECIFIED Status: Acute Comment: 2nd degree. Healing well. No complications at this time. Will follow up in 2 wks for exam. - Assessment/Plan Will d/c to home with . Continue to breast feed ad bernardo. Follow up in 2 wks at [facility]. Precautions discussed. Susan
[2017-12-21] MEDS: Ferrous Sulfate 325 MG TAB PO SCH (09:10)
[2017-12-21] MEDS: Docusate Calcium (SURFAK) 240 MG CAP PO SCH (09:11)
[2017-12-21] MEDS: Prenatal Vitamin 1 TAB PO SCH (09:11)
[2017-12-21] MEDS ORDERED: Ibuprofen 800 MG TAB PO SCH (14:00)
== END 2017-12-21 11:10 | disposition home or self-care (01) | DRG 775 ==
LOC: L&D 07:03 → 3SW 23:06
PROVIDERS: ADMIT Student in an Organized Health Care Education/Training Program; ATTEND Student in an Organized Health Care Education/Training Program
PROC: 10E0XZZ Delivery of Products of Conception, External Approach (ICD-10-PCS; principal; 2017-12-19)
PROC: 0KQM0ZZ Repair Perineum Muscle, Open Approach (ICD-10-PCS; 2017-12-19)
PROC: 10907ZC Drainage of Amniotic Fluid, Therapeutic from Products of Conception, Via Natural or Artificial Opening (ICD-10-PCS; 2017-12-19)
DX: O36.5930 Maternal care for other known or suspected poor fetal growth, third trimester, not applicable or unspecified (principal); D50.0 Iron deficiency anemia secondary to blood loss (chronic); O34.211 Maternal care for low transverse scar from previous cesarean delivery; Z37.0 Single live birth; Z3A.39 39 weeks gestation of pregnancy; Z87.59 Personal history of other complications of pregnancy, childbirth and the puerperium; O70.1 Second degree perineal laceration during delivery; O35.8XX0 Maternal care for other (suspected) fetal abnormality and damage, not applicable or unspecified; O99.02 Anemia complicating childbirth
CPT/HCPCS: 36415; 51702; 80053; 82570; 84156; 85027; 86780; 86850; 86900; 86901; 87340; 88307; J2001; J2550; J3010; J3490; J7050

== ENCOUNTER 2020-09-08 23:00 | Day surgery (SDC) | payer OTHER ==
[2020-09-08] MEDS ORDERED: hydrALAZINE 20 MG/ML VIAL SLOW IVP PRN (23:52)
[2020-09-08 23:56] LABS: Amnisure Internal Control QC ACCEPTABLE (ACCEPTABLE); Amnisure Test No Membranes Rupture (No Rupture)
--- NOTE | 2020-09-09 00:33 | PDOC.FPROB ---
FMR OB H&P: HPI - History of Present Illness Chief Complaint: LOF History of Present Illness: Pt is a 24yo @ 32.4 wks who presents for evaluation of LOF. Around 10pm when she was undressing she noticed fluid from her vagina. Described as thicker than water, "kind of slimy", clear/white. Happened only once. Was seen in clinic today and had growth US which patient reports was normal. No complications this , only takes PNV. Reports movement. Denies ctx, vaginal itching/ bleeding/pain, dysuria. Primary Care Physician: C FMR OB H&P: Current - Care : 3 Para: 2 Gestational age: 32.4 wks Due date: 10/31/20 FMR OB H&P: History - Past Medical History PMH: none - OB History OB History: , first delivery was a CS, second was - Surgical History Sx History: CS, tonsillectomy - Social History Social History: no TAD - Family History Family History: none FMR OB H&P: Medications - Current Home Medications: Medication Instructions Recorded Confirmed Type Vit No.130/Iron/Folic 1 tab PO DAILY 12/25/15 12/19/17 History [ Tablet] Fluconazole [Diflucan] 150 mg PO DAILY #1 tablet 09/09/20 Rx Allergies/Adverse Reactions: Allergies Allergy/AdvReac Type Severity Reaction Status Date / Time No Known Allergies Allergy Verified 09/09/20 00:56 FMR OB H&P: ROS - Review of Systems General: denies: fever/chills Eyes: denies: vision changes ENT: denies: nasal congestion Cardiovascular: denies: chest pain, edema Respiratory: denies: cough, congestion, shortness of breath Gastrointestinal: denies: abdominal pain, nausea, vomiting, diarrhea Genitourinary (Female): reports: vaginal discharge. denies: dysuria, vaginal bleeding, contractions Musculoskeletal: denies: pain Neurologic: denies: headache Integumentary: denies: rash Hematologic/Lymphatic: denies: prolonged or excessive bleeding FMR OB H&P: Vital Signs - Maternal Vital signs: 125/83, HR 100 - Heart Tones Baseline: 145 Variability: moderate Acceleration: present Deceleration: absent Category: category 1 [place] contractions every: none FMR OB H&P: Physical Exam - Physical Exam General: NAD, awake, alert and oriented HEENT: normocephalic and atraumatic, grossly normal vision, grossly normal hearing Neck: supple Heart: RRR, normal S1/S2, no murmurs/rubs/gallops General: CTAB, no respiratory distress, no wheezing Abdomen: soft, gravid, non-tender Musculoskeletal: pulses present, FROM in all four extremities Neurological: no focal deficit Skin: no rash, capillary refill <2 seconds Lymphatic: no unusual bruising or bleeding Psychiatric: intact recent and remote memory, good judgement and insight, normal mood and affect - Pelvic Exam Vulva: normal hair distribution, no blood Deviation from normal: thick,white discharge, no pooling of fluid or fluid expressed with valsalva FMR OB H&P: Results - Labs Lab results: Laboratory Results - last 24 hr 09/08/20 23:43 Amnio Swab Test No Membranes Rupture FMR OB H&P: A/P Discussion: Date/Time: 09/09/20 0032 #assessment for LOF -amnisure negative -cervical exam was negative for pooling or expression of fluid with valsalva -FHT: baseline 145, mod vladislav, +accel. no ctx -continue routine outpt f/u Vaginal Candidiasis -thick, white discharge consistent with candidiasis was seen on PE -sent in rx for diflucan This H&P was discussed with Dr. Olvera who agrees with the above documentation and plan.
--- NOTE | 2020-09-09 00:56 | PDOC.BPN ---
- Brief Progress Note Assisted with SSE: No evidence of LOF, no pooling. valsalva test negative. POS for yeast infection.
[2020-09-09 01:03] VITALS: BMI 46.3
--- NOTE | 2020-09-09 01:05 | HP ---
TIME OF EVALUATION: 14, now 0030. LOCATION: Labor and Delivery Triage. CHIEF COMPLAINT: Possible leakage of fluid at 32 weeks gestation. This is a patient of clinic. The patient was first evaluated by Alma Squires, who is a resident individual pension consultant, and I have seen and evaluated the patient as well. HISTORY OF PRESENT ILLNESS: This is a 24-year-old, G3, P2, with 1 previous and 1 vaginal after , who is at 32 weeks and 4 days. She states that she had one small episode of white discharge, but no gush of fluid. This was at around 2200. She denies any trauma, vaginal bleeding, or decrease in movement. She has not had a persistent leak since that episode. She has no other issues. REVIEW OF SYSTEMS: GENERAL: No sick contacts. No trauma. No COVID exposure. PULMONARY: No shortness of breath. CARDIOVASCULAR: No chest pain. EXTREMITIES: No unusual calf swelling or pain. OB HISTORY: She has had a previous and then a . PAST MEDICAL HISTORY: Negative. MEDICATIONS: vitamins. ALLERGIES: NONE. SOCIAL HISTORY: Patient denies alcohol, tobacco, or substance use. PHYSICAL EXAMINATION: VITAL SIGNS: Stable and she is afebrile. Respirations are 18 and nonlabored. GENERAL: She is in no acute distress. ABDOMEN: Size consistent with date and nontender. PELVIC EXAM: There is no evidence of gross leakage of fluid; although, sterile spec exam is pending. LABORATORY DATA: AmniSure was collected and is negative. monitor: heart rate is reactive for gestational age with moderate variability. No contractions are seen on tocodynamometer. ASSESSMENT: A 24-year-old, G3, P2, at 32 weeks and 4 days, patient of the clinic, with -related vaginal discharge. AmniSure is negative. Sterile spec is about to be done. PLAN: 1. We will perform sterile spec prior to patient's release. 2. History not very compatible with rupture and the AmniSure negative is reassuring at a gestational age of 32 weeks, but sterile spec will still be done. 3. Reassurance given. 4. If there is evidence of a ruptured membranes on sterile spec exam, then we will admit, give antibiotics for latency, give steroids, magnesium sulfate for neuro protection. Job ID: [id number] [facility]
== END 2020-09-09 00:50 | disposition home or self-care (01) ==
LOC: L&D/OP 23:00
PROVIDERS: ATTEND Obstetrics & Gynecology
DX: O98.813 Other maternal infectious and parasitic diseases complicating pregnancy, third trimester (principal); B37.3 Candidiasis of vulva and vagina; O34.219 Maternal care for unspecified type scar from previous cesarean delivery; Z3A.32 32 weeks gestation of pregnancy
CPT/HCPCS: 84112

== ENCOUNTER 2020-10-06 12:29 | Day surgery (SDC) | payer OTHER ==
--- NOTE | 2020-10-06 13:38 | PDOC.FPROB ---
FMR OB H&P: HPI - History of Present Illness Chief Complaint: tachycardia History of Present Illness: 24 y/o @ 36.3 wga by 12.2 wk US presents for tachycardia. Went to clinic today for routine testing for maternal obesity, was noted to have tachycardia 180s and sent to L&D for triage. Good movement, no VB/discharge/urinary symptoms/contractions. ROS otherwise negative. Good PO intake over past several days, although minimal PO intake today due to running errands/going to schedule appointments. Primary Care Physician: GABBI Rey FMR OB H&P: Current - Care : 3 Para: 2001 Gestational age: 36.3 Due date: 10/31/20 Dating Criteria: 12.2 wk sono Course/Complications: hx asthma maternal obesity false positive Hep C Ab with negative PCR on 05/02/20 anemia of hx vaginal candidiasis FMR OB H&P: History - Past Medical History PMH: asthma, well controlled - OB History OB History: hx LTCS x 1 hx - [employer] History [employer] History: NILM 04/2020 - Surgical History Sx History: hx c section x 1 tonisllectomy - Social History Social History: denies drug/tobacco/etoh - Family History Family History: denies significant family hx FMR OB H&P: Medications - Current Home Medications: Medication Instructions Recorded Confirmed Type Vit No.130/Iron/Folic 1 tab PO DAILY 12/24/09/09/20 History [ Tablet] Fluconazole [Diflucan] 150 mg PO DAILY #1 tablet 09/09/20 Rx Allergies/Adverse Reactions: Allergies Allergy/AdvReac Type Severity Reaction Status Date / Time No Known Allergies Allergy Verified 09/09/20 00:56 FMR OB H&P: ROS - Review of Systems General: denies: fever/chills, fatigue Eyes: denies: eye pain, vision changes, scotomas, floaters ENT: denies: nasal congestion, rhinorrhea, sinus pain/pressure, sore throat Cardiovascular: denies: chest pain, palpitation, edema Respiratory: denies: cough, congestion Gastrointestinal: denies: abdominal pain, bloating, cramping, nausea, vomiting, diarrhea, constipation Genitourinary (Female): denies: dysuria, hematuria, hesitancy, vaginal discharge, vaginal pain, vaginal bleeding, contractions, vaginal pressure Musculoskeletal: denies: pain, arthritis/arthralgias Neurologic: denies: weakness, headache Integumentary: denies: rash Endocrine: denies: polydipsia, polyuria Psychological: denies: depression, anxiety FMR OB H&P: Vital Signs - Maternal Vital signs: BP 132/83 , HR 90 - Heart Tones Baseline: 150 Variability: moderate Acceleration: present Deceleration: absent FMR OB H&P: Physical Exam - Physical Exam General: NAD, awake, alert and oriented HEENT: normocephalic and atraumatic, MMM, conjunctiva clear, no scleral icterus, grossly normal vision, grossly normal hearing, good dention Neck: supple, no LAD Chest: non-tender to palpation Heart: RRR, normal S1/S2, no murmurs/rubs/gallops, pulses present, no edema General: CTAB, no respiratory distress, no wheezing Abdomen: soft, gravid, non-tender, bowel sound present Musculoskeletal: normal gait and station, pulses present Neurological: sensation to pain,touch and proprioception grossly normal, no tremor, no focal deficit Skin: no rash, good tugor, capillary refill <2 seconds Lymphatic: no unusual bruising or bleeding, no LAD Psychiatric: intact recent and remote memory, good judgement and insight, normal mood and affect FMR OB H&P: A/P Disposition: sIUP @ 36.3 wga by 12.2 wk sono tachycardia Reported tachycardia to 180s in US clinic today, sent to L&D for triage. - continuous FHR monitoring, FHR 150s/mod/+accels so far - encourage PO hydration - no maternal sx, will defer laboratory evaluation - will check BPP + growth today Dispo: pending US & FHR monitoring, anticipate DC to home if monitoring wnl Discussion: Date/Time: 10/06/20 0858 Update: FHR remained within normal limits. BPP 8/8, CHELI 7.9, growth c/w dates. Will DC to home. This H&P was discussed with Dr. Espinosa who agree with the above documentation and plan. Signature: patient seen by myself and resident . agree with care pallane. mayito de jesus
[2020-10-06] MEDS ORDERED: hydrALAZINE 20 MG/ML VIAL SLOW IVP PRN (13:46)
[2020-10-06 13:48] VITALS: BMI 46.5
--- NOTE | 2020-10-06 18:07 | ULT ---
OB ULTRASOUND WITH BIOPHYSICAL PROFILE: 10/06/20 INDICATIONS: Assess growth and wellbeing. FINDINGS: There is a single intrauterine with gestational age by ultrasound of 36 weeks, 1 day. BIOMETRY: BPD: 37 week, 1 day. HC: 36 week, 6 day. AC: 34 week, 2 day. FL: 36 week, 1 day. EFW: 2651 grams, 36 week, 2 day. Placenta: Anterior. Position: Variable. heart rate: 137 beats per minute. Amniotic fluid: Low normal. CHELI recorded at 7.9 cm. Anatomy survey was not performed. BIOPHYSICAL PROFILE: tone: Score 2. breathing: Score 2. movement: Score 2. Amniotic fluid: Score 2. Total Score: 8/8. IMPRESSION: 36 week, 1 day gestational by ultrasound measurement. Amniotic fluid low normal. POS: AGW
== END 2020-10-06 15:17 | disposition home health service (06) ==
LOC: L&D/OP 12:29
PROVIDERS: ATTEND Obstetrics & Gynecology
DX: O36.8330 Maternal care for abnormalities of the fetal heart rate or rhythm, third trimester, not applicable or unspecified (principal); O99.213 Obesity complicating pregnancy, third trimester; E66.9 Obesity, unspecified; O99.013 Anemia complicating pregnancy, third trimester; D64.9 Anemia, unspecified; O99.513 Diseases of the respiratory system complicating pregnancy, third trimester; J45.909 Unspecified asthma, uncomplicated; Z86.19 Personal history of other infectious and parasitic diseases; O34.211 Maternal care for low transverse scar from previous cesarean delivery; Z3A.36 36 weeks gestation of pregnancy
CPT/HCPCS: 76815; 76819; 99282

== ENCOUNTER 2021-04-05 15:26 | Emergency (ER) | payer OTHER ==
[2021-04-05 18:44] LABS: #Eosinphils 0.1 thou/uL (0.0-0.7); #Lymphocytes 2.8 thou/uL (1.20-3.40); #Monocytes 0.4 thou/uL (0.11-0.59); #Neutrophils 7.6 thou/uL (1.40-6.50); %Eosinophils 0.9 % (0.0-10.0); %Lymphocytes 25.6 % (21.0-51.0); %Monocytes 3.3 % (0.0-10.0); %Neutrophils 70.2 % (42.0-75.0); Hemoglobin 12.6 g/dL (12.0-16.0); Mean Corpuscular HGB CONC 32.7 g/dL (32.0-36.0); Mean Corpuscular Hemoglobin 24.6 pg (27.0-31.0); Mean Corpuscular Volume 75.2 fL (78.0-98.0); Platelet Count 284 thou/uL (130-400); RBC Distribution Width 14.8 % (11.5-14.5); Red Blood Cell (RBC) Count 5.11 mill/uL (4.20-5.40); White Blood Cell (WBC) Count 10.8 thou/uL (4.8-10.8)
[2021-04-05 18:57] LABS: ALT (SGPT) 18 U/L (8-55); AST (SGOT) 17 U/L (5-34); Albumin 4.7 g/dL (3.5-5.0); Alkaline Phosphatase 81 U/L (40-110); Anion Gap 13 mmol/L (10-20); BUN (Urea Nitrogen) 6 mg/dL (7.0-18.7); Bilirubin, Total 0.4 mg/dL (0.2-1.2); Calc. Creatinine Clearance 0 mL/min (70-130); Calcium 9.3 mg/dL (7.8-10.44); Carbon Dioxide 23 mmol/L (22-29); Chloride 104 mmol/L (98-107); Glucose 89 mg/dL (70-105); Potassium 3.9 mmol/L (3.5-5.1); Protein, Total 7.7 g/dL (6.0-8.3); Sodium 136 mmol/L (136-145)
== END 2021-04-05 20:42 | disposition home or self-care (01) ==
LOC: ERS 15:26
DX: G51.0 Bell's palsy (principal); J45.909 Unspecified asthma, uncomplicated
CPT/HCPCS: 36415; 80053; 84484; 85025; 99284

== ENCOUNTER 2021-10-05 17:25 | Emergency (ER) | payer OTHER ==
[2021-10-05] MEDS ORDERED: Ketorolac Tromethamine 30 MG/ML VIAL ONE (18:08)
[2021-10-05] MEDS ORDERED: Cyclobenzaprine 10 MG TAB ONE (18:08)
== END 2021-10-05 18:37 | disposition home or self-care (01) ==
LOC: ERS 17:25
DX: M54.50 Low back pain, unspecified (principal); J45.909 Unspecified asthma, uncomplicated
CPT/HCPCS: 72100; 96372; J1885

== ENCOUNTER 2021-11-09 15:39 | Emergency (ER) | payer MEDICAID, OTHER ==
[2021-11-09] MEDS ORDERED: Acetaminophen 500 MG TAB ONE (16:16)
== END 2021-11-09 17:14 | disposition home or self-care (01) ==
LOC: ERS 15:39
DX: B34.9 Viral infection, unspecified (principal); J45.909 Unspecified asthma, uncomplicated
CPT/HCPCS: 71045; 87804; 99284

== ENCOUNTER 2022-05-04 08:37 | Emergency (ER) | payer OTHER ==
[2022-05-04] MEDS ORDERED: Ketorolac Tromethamine 30 MG/ML VIAL ONE (09:47)
[2022-05-04] MEDS ORDERED: Cyclobenzaprine 10 MG TAB ONE ×2 (09:47→09:48)
[2022-05-04 10:33] LABS: Bilirubin Negative (Negative); Blood, Urine Trace (Negative); Clarity Clear (Clear); Glucose, Urine (Dipstick) Negative (Negative); Ketone, Urine Negative (Negative); Leukocyte Trace (Negative); Nitrite Negative (Negative); Protein, Urine (Dipstick) Negative (Neg-Trace); Urobilinogen 0.2 mg/dL (Less than 2); pH, Urine 6.5 (5.0-9.0)
[2022-05-04 10:40] LABS: Bacteria/HPF 2+ HPF (None Seen); RBC/HPF 0-3 HPF (0-3)
== END 2022-05-04 11:15 | disposition home or self-care (01) ==
LOC: ERS 08:37
DX: M24.851 Other specific joint derangements of right hip, not elsewhere classified (principal)
CPT/HCPCS: 81003; 81015; 87086; 96372; J1885

== ENCOUNTER 2022-11-28 23:29 | Emergency (ER) | payer OTHER ==
[2022-11-28] MEDS ORDERED: Mag-Al 1200 mg/1200 mg/30 ML UDCUP ONE (23:52)
[2022-11-29 00:41] LABS: #Eosinphils 0.1 thou/uL (0.0-0.7); #Lymphocytes 2.3 thou/uL (1.20-3.40); #Monocytes 0.4 thou/uL (0.11-0.59); #Neutrophils 3.8 thou/uL (1.40-6.50); %Basophils 0.4 % (0.0-1.0); %Eosinophils 1.6 % (0.0-10.0); %Lymphocytes 34.3 % (21.0-51.0); %Monocytes 6.2 % (0.0-10.0); %Neutrophils 57.5 % (42.0-75.0); Mean Corpuscular HGB CONC 34.3 g/dL (32.0-36.0); Mean Corpuscular Volume 78.7 fl (78.0-98.0); Mean Platelet Volume 8.7 fL (7.4-10.4); Platelet Count 222 10x3/uL (130-400); RBC Distribution Width 13.4 % (11.5-14.5); Red Blood Cell (RBC) Count 4.79 mill/uL (4.20-5.40); White Blood Cell (WBC) Count 6.6 10x3/uL (4.8-10.8)
[2022-11-29 01:03] LABS: ALT (SGPT) 28 U/L (8-55); AST (SGOT) 20 U/L (5-34); Albumin 4.2 g/dL (3.5-5.0); Alkaline Phosphatase 85 U/L (40-110); Anion Gap 13 mmol/L (10-20); BUN (Urea Nitrogen) 7 mg/dL (7.0-18.7); Bilirubin, Total 0.4 mg/dL (0.2-1.2); Calc. Creatinine Clearance 0 mL/min (70-130); Calcium 9.2 mg/dL (7.8-10.44); Carbon Dioxide 22 mmol/L (22-29); Chloride 105 mmol/L (98-107); Estimated GFR 126; Globulin 3.1 g/dL (2.4-3.5); Glucose 102 mg/dL (70-105); Lipase 33 U/L (8-78); Potassium 3.3 mmol/L (3.5-5.1); Protein, Total 7.3 g/dL (6.0-8.3); Sodium 137 mmol/L (136-145)
== END 2022-11-29 01:37 | disposition home or self-care (01) ==
LOC: ERS 23:29
DX: K21.9 Gastro-esophageal reflux disease without esophagitis (principal); N13.30 Unspecified hydronephrosis
CPT/HCPCS: 36415; 76705; 80053; 83690; 84484; 85025; 93005

== ENCOUNTER 2023-04-08 17:18 | Emergency (ER) | payer OTHER ==
[2023-04-08] MEDS ORDERED: Metoclopramide HCl 10 MG/2 ML VIAL ONE (18:56)
[2023-04-08] MEDS ORDERED: diphenhydrAMINE 50 MG/ML VIAL ONE (18:56)
[2023-04-08 19:13] LABS: #Monocytes 0.4 thou/uL (0.11-0.59); #Neutrophils 3.7 thou/uL (1.40-6.50); %Basophils 0.2 % (0.0-1.0); %Eosinophils 0.4 % (0.0-10.0); %Lymphocytes 24.7 % (21.0-51.0); %Monocytes 6.7 % (0.0-10.0); %Neutrophils 67.8 % (42.0-75.0); Hematocrit 38.4 % (36.0-47.0); Hemoglobin 12.7 g/dL (12.0-16.0); Mean Corpuscular HGB CONC 33.1 g/dL (32.0-36.0); Mean Corpuscular Hemoglobin 25.7 pg (27.0-31.0); Mean Corpuscular Volume 77.7 fl (78.0-98.0); Mean Platelet Volume 10.3 fL (7.4-10.4); Platelet Count 222 10x3/uL (130-400); RBC Distribution Width 14.6 % (11.5-14.5); Red Blood Cell (RBC) Count 4.94 mill/uL (4.20-5.40); White Blood Cell (WBC) Count 5.5 10x3/uL (4.8-10.8)
[2023-04-08 19:25] LABS: BHCG - Serum Negative (NEGATIVE); Pregs Control Background? CLEAR/WHITE (CLR/WHITE); Pregs Control Bar Appear? YES (CONTROL BAR)
[2023-04-08 19:35] LABS: ALT (SGPT) 23 U/L (8-55); AST (SGOT) 19 U/L (5-34); Albumin 4.4 g/dL (3.5-5.0); Alkaline Phosphatase 81 U/L (40-110); Anion Gap 14 mmol/L (10-20); BUN (Urea Nitrogen) 8 mg/dL (7.0-18.7); Bilirubin, Total 0.4 mg/dL (0.2-1.2); Calc. Creatinine Clearance 0 mL/min (70-130); Calcium 8.9 mg/dL (7.8-10.44); Carbon Dioxide 24 mmol/L (22-29); Chloride 102 mmol/L (98-107); Estimated GFR 126; Globulin 3.2 g/dL (2.4-3.5); Glucose 98 mg/dL (70-105); Potassium 3.7 mmol/L (3.5-5.1); Protein, Total 7.6 g/dL (6.0-8.3); Sodium 136 mmol/L (136-145)
[2023-04-08 20:06] LABS: Bacteria/HPF None Seen HPF (None Seen); Bilirubin Negative (Negative); Blood, Urine Negative (Negative); CAUTI Indications for Culture Pelvic or flank pain; Clarity Clear (Clear); Glucose, Urine (Dipstick) Normal (Negative); Ketone, Urine Negative (Negative); Leukocyte 250 Leu/uL (Negative); Nitrite Negative (Negative); Protein, Urine (Dipstick) Negative (Neg-Trace); RBC/HPF 0-3 HPF (0-3); Specific Gravity, Urine 1.014 (1.002-1.036); Urobilinogen Normal mg/dL (Less than 2); WBC/HPF 0-3 HPF (0-3); pH, Urine 6.5 (5.0-9.0)
[2023-04-08 20:09] LABS: Urine Culture Reflex No No
[2023-04-08] MEDS ORDERED: Ketorolac Tromethamine 30 MG/ML VIAL ONE (20:51)
[2023-04-08] MEDS ORDERED: Magnesium 2 GM/50 ML BAG (IN WATER) ONE (20:55)
[2023-04-08] MEDS ORDERED: Dexameth. Sod Phosp. 10 MG/ML (CHEMO USE ONLY) ONE (20:55)
== END 2023-04-08 22:27 | disposition home or self-care (01) ==
LOC: ERS 17:18
DX: G44.209 Tension-type headache, unspecified, not intractable (principal)
CPT/HCPCS: 80053; 81001; 84703; 85025; 87081; 87430; 96365; 96367; 96375; J1100; J1200; J1885; J2765; J3475